=== PATIENT | female | born 1945 | race Hispanic/Latino ===

== ENCOUNTER → 2018-08-17 | Outpatient (CLI) | payer OTHER | END | disposition home or self-care (01) | LOC: SHCH 14:25 | PROVIDERS: ATTEND Internal Medicine Cardiovascular Disease | DX: I51.7 Cardiomegaly (principal); I35.1 Nonrheumatic aortic (valve) insufficiency; R55 Syncope and collapse | CPT/HCPCS: 93306 ==

== ENCOUNTER 2020-09-02 12:56 | Emergency (ER) | payer OTHER ==
[2020-09-02] MEDS ORDERED: 0.9%NACL 1000ML 1,000 ML IV ONE (13:13)
[2020-09-02] MEDS ORDERED: ACETAMINOPHEN 500 MG TABLET ONE (13:13)
[2020-09-02 13:35] LABS: BASOPHILS % (AUTO) 0.7 % (0.0-5.0); EOSINOPHILS % (AUTO) 3.2 % (0.0-8.0); HEMATOCRIT 28.2 % (36-48); LYMPHOCYTES % (AUTO) 20.1 % (21.0-51.0); MEAN CORPUSCULAR HEMOGLOBIN 32.4 pg (27.0-33.0); MEAN CORPUSCULAR HGB CONC 32.6 g/dL (32.0-36.0); MEAN CORPUSCULAR VOLUME 99.3 fL (79-99); MONOCYTES % (AUTO) 8.8 % (3.0-13.0); PLATELET COUNT (AUTO) 322 K/uL (130-400); RED BLOOD CELL COUNT(AUTO) 2.84 MIL/uL (4.00-5.50); RED CELL DISTRIBUTION WIDTH 13.8 % (11.0-15.5); WHITE BLOOD COUNT (AUTO) 4.3 K/uL (4.8-10.8)
[2020-09-02 13:50] LABS: INR 0.98 (0.85-1.15); PROTHROMBIN TIME 10.7 SEC (9.6-11.6)
[2020-09-02 13:52] LABS: PARTIAL THROMBOPLASTIN TIME 27.6 SEC (26.3-35.5)
[2020-09-02 13:59] LABS: ALANINE AMINOTRANSFERASE 16 U/L (12-78); ALBUMIN 3.1 g/dL (3.5-5.0); ASPARTATE AMINOTRANSFERASE 14 U/L (10-37); BILIRUBIN,TOTAL 0.3 mg/dL (0.2-1.0); CARBON DIOXIDE 30 mmol/L (21-32); CHLORIDE 109 mmol/L (101-111); CREATINE KINASE, TOTAL 28 U/L (21-232); CREATININE 0.6 mg/dL (0.5-1.5); GLOMERULAR FILTR. RATE CALC 104 mL/min (>60); GLUCOSE,RANDOM 112 mg/dL (70-105); MYOGLOBIN 38 ng/mL (10-92); POTASSIUM 4.6 mmol/L (3.5-5.1); SODIUM SERUM 145 mmol/L (136-145); TOTAL PROTEIN, SERUM 6.5 g/dL (6.0-8.3); TROPONIN I < 0.04 ng/mL (0.00-0.06); UREA NITROGEN, BLOOD 14 mg/dL (7-18)
[2020-09-02 15:38] LABS: APPEARANCE,URINE Clear (CLEAR); BILIRUBIN,URINE Negative (NEGATIVE); COLOR,URINE Yellow (YELLOW); GLUCOSE, URINE (UA) Negative (NEGATIVE); KETONES,URINE Negative (NEGATIVE); LEUKOCYTE ESTERASE ,URINE Negative (NEGATIVE); NITRATE,URINE Negative (NEGATIVE); OCCULT BLOOD,URINE Negative (NEGATIVE); PH,URINE 7.5 (5.0-8.0); PROTEIN,URINE Negative (NEGATIVE); UROBILINOGEN,URINE 0.2 mg/dL (0.2-1.0)
== END 2020-09-02 17:37 | disposition home or self-care (01) ==
LOC: EDH 12:56
DX: B33.8 Other specified viral diseases (principal); Z20.822 Contact with and (suspected) exposure to COVID-19; I10 Essential (primary) hypertension; Z98.890 Other specified postprocedural states; I25.10 Atherosclerotic heart disease of native coronary artery without angina pectoris; Z88.6 Allergy status to analgesic agent; Z72.0 Tobacco use
CPT/HCPCS: 36415; 71045; 80053; 81003; 82550; 83605; 83874; 84145; 84484; 85025; 85610; 85730; 86900; 86901; 87040 ×2; 87088; 87426; 87804 ×2; 93005; 99285; J7030; U0003

== ENCOUNTER 2021-03-31 16:11 | Emergency (ER) | payer OTHER ==
[~2021-03-31] VITALS: Ht 165.1 cm; Wt 49.9 kg
[2021-03-31] MEDS ORDERED: POLY119P2 PO (18:58)
[2021-03-31 19:27] VITALS: BP 170/76
== END 2021-03-31 19:20 | disposition home or self-care (01) ==
LOC: EDH 16:11
DX: K56.41 Fecal impaction (principal); I10 Essential (primary) hypertension; E11.9 Type 2 diabetes mellitus without complications; Z88.6 Allergy status to analgesic agent

== ENCOUNTER 2021-05-17 19:27 | Observation (INO) | payer OTHER ==
[~2021-05-17] VITALS: Ht 165.1 cm; Wt 50.6 kg
[~2021-05-17 19:27] MED LIST: POLY119P2 PO
[2021-05-17 20:19] LABS: BASOPHILS % (AUTO) 0.5 % (0.0-5.0); EOSINOPHILS % (AUTO) 5.3 % (0.0-8.0); HEMATOCRIT 27.6 % (36-48); LYMPHOCYTES % (AUTO) 28.2 % (21.0-51.0); MEAN CORPUSCULAR HEMOGLOBIN 33.1 pg (27.0-33.0); MEAN CORPUSCULAR VOLUME 100.4 fL (79-99); MONOCYTES % (AUTO) 7.1 % (3.0-13.0); NEUTROPHILS % (AUTO) 58.9 % (40.0-77.0); PLATELET COUNT (AUTO) 170 K/uL (130-400); RED BLOOD CELL COUNT(AUTO) 2.75 MIL/uL (4.00-5.50); RED CELL DISTRIBUTION WIDTH 13.5 % (11.0-15.5); WHITE BLOOD COUNT (AUTO) 3.8 K/uL (4.8-10.8)
[2021-05-17 20:26] LABS: INR 1.36 (0.85-1.15); PROTHROMBIN TIME 14.4 SEC (9.6-11.6)
[2021-05-17 20:36] LABS: CREATININE 0.6 mg/dL (0.5-1.5); POTASSIUM 3.6 mmol/L (3.5-5.1)
[2021-05-17 20:47] LABS: B-TYPE NATRIURETIC PEPTIDE 323 pg/mL (0-100)
[2021-05-17 20:50] LABS: ALBUMIN 3.8 g/dL (3.5-5.0); BILIRUBIN,TOTAL 0.3 mg/dL (0.2-1.0); TOTAL PROTEIN, SERUM 6.7 g/dL (6.0-8.3)
[2021-05-17] MEDS ORDERED: NITROGLYCERIN 1GM OINT 1 INCH/1GM TD ONE (21:00)
[2021-05-17] MEDS ORDERED: ASPIRIN 325MG TAB PO ONE (21:00)
[2021-05-17] MEDS ORDERED: IOHEXOL 350 MG/ML 100ML INFUS..BTL IV ONE (21:01)
[2021-05-17 22:08] LABS: APPEARANCE,URINE Clear (CLEAR); BILIRUBIN,URINE Negative (NEGATIVE); COLOR,URINE Yellow (YELLOW); GLUCOSE, URINE (UA) Negative (NEGATIVE); KETONES,URINE Negative (NEGATIVE); LEUKOCYTE ESTERASE ,URINE Large (NEGATIVE); NITRATE,URINE Negative (NEGATIVE); OCCULT BLOOD,URINE Negative (NEGATIVE); PROTEIN,URINE Trace mg/dL (NEGATIVE)
[2021-05-17 22:14] LABS: BACTERIA,URINE Few /HPF (None Seen); RBC,URINE 0-1 /HPF (0-1)
[2021-05-17 22:15] LABS: SQUAMOUS EPITHELIAL CELL,UR Rare /HPF (0-2); TRANSITIONAL EPI CELLS,URINE Few /HPF (None Seen)
[2021-05-17 22:16] LABS: AMPHET/METH SCREEN,URINE NEGATIVE (NEGATIVE); BARBITURATE SCREEN, URINE NEGATIVE (NEGATIVE); BENZODIAZEPINES SCREEN,URINE NEGATIVE (NEGATIVE); CANNABINOID SCREEN,URINE NEGATIVE (NEGATIVE); COCAINE SCREEN,URINE NEGATIVE (NEGATIVE); OPIATE SCREEN,URINE NEGATIVE (NEGATIVE); PHENCYCLIDINE SCREEN,URINE NEGATIVE (NEGATIVE)
[2021-05-17] MEDS ORDERED: CEFTRIAXONE 1G VIAL IV SCH (22:30)
[2021-05-17] MEDS ORDERED: ONDANSETRON 4MG INJ IV PRN (22:30)
[2021-05-17] MEDS: NITROGLYCERIN 1GM OINT 1 INCH/1GM TD SCH (22:30)
[2021-05-18 04:30] VITALS: BP 167/54
[2021-05-18 06:33] LABS: BASOPHILS % (AUTO) 0.2 % (0.0-5.0); EOSINOPHILS % (AUTO) 5.7 % (0.0-8.0); HEMATOCRIT 29.2 % (36-48); LYMPHOCYTES % (AUTO) 37.7 % (21.0-51.0); MEAN CORPUSCULAR HGB CONC 32.9 g/dL (32.0-36.0); MEAN CORPUSCULAR VOLUME 100.3 fL (79-99); MONOCYTES % (AUTO) 9.7 % (3.0-13.0); NEUTROPHILS % (AUTO) 46.5 % (40.0-77.0); PLATELET COUNT (AUTO) 149 K/uL (130-400); RED BLOOD CELL COUNT(AUTO) 2.91 MIL/uL (4.00-5.50); RED CELL DISTRIBUTION WIDTH 13.4 % (11.0-15.5)
[2021-05-18] MEDS: INSULIN HUMULIN R 100 UNIT/ML 3ML SQ SCH ×2 (06:36→11:30)
[2021-05-18] MEDS: NITROGLYCERIN 1GM OINT 1 INCH/1GM TD SCH ×2 (06:36→14:28)
[2021-05-18 06:41] LABS: HEMOGLOBIN A1C 5.6 % (4.0-6.0)
[2021-05-18 06:52] LABS: CREATININE 0.5 mg/dL (0.5-1.5); MAGNESIUM 2.2 mg/dL (1.80-2.40); PHOSPHORUS 3.8 mg/dL (2.5-4.9); POTASSIUM 3.7 mmol/L (3.5-5.1)
[2021-05-18] MEDS ORDERED: HYDR25TA PO (07:50)
[2021-05-18] MEDS ORDERED: AMLO-257 PO (07:50)
[2021-05-18] MEDS ORDERED: PRAV40TA3 PO (07:50)
[2021-05-18] MEDS ORDERED: SERT-440 PO (07:50)
[2021-05-18] MEDS ORDERED: LISI40TA9 PO (07:50)
[2021-05-18] MEDS ORDERED: ERGO500093 PO (07:50)
[2021-05-18] MEDS ORDERED: METF-444 PO (07:50)
[2021-05-18] MEDS ORDERED: AEC81 PO (07:50)
[2021-05-18 08:49] VITALS: BP 149/45
[2021-05-18] MEDS ORDERED: ASPIRIN 81 MG EC TAB PO SCH (09:00)
[2021-05-18] MEDS ORDERED: ENOXAPARIN SODIUM 30 MG/0.3 ML SQ SCH (09:00)
[2021-05-18] MEDS ORDERED: HYDROCHLOROTHIAZIDE 25 MG TABLET PO SCH (09:00)
[2021-05-18] MEDS ORDERED: FAMOTIDINE 20MG TAB PO SCH (09:00)
[2021-05-18] MEDS ORDERED: AMLODIPINE 5 MG TAB PO SCH (09:00)
[2021-05-18] MEDS ORDERED: PNEUMOCOCCAL VACCINE POLYVALENT 0.5 ML/VIAL [PPV] IM SCH (10:00)
[2021-05-18] MEDS ORDERED: 0.9%NACL 1000ML 1,000 ML IV SCH (10:30)
[2021-05-18] MEDS ORDERED: HYDROCODONE/ACETAMINOPHEN 5/325 MG TAB PO PRN (10:30)
[2021-05-18 11:38] VITALS: BP 178/50
[2021-05-18] MEDS ORDERED: LISINOPRIL 40 MG TABLET PO SCH (21:00)
[2021-05-18] MEDS ORDERED: ATORVASTATIN 10 MG TABLET PO SCH (21:00)
== END 2021-05-18 15:15 | disposition left against medical advice (07) ==
LOC: EDH 19:27 → EDHIP 22:18 → 4CH 05-18 04:21
PROVIDERS: ADMIT Internal Medicine; ATTEND Internal Medicine
DX: R07.89 Other chest pain (principal); N39.0 Urinary tract infection, site not specified; E43 Unspecified severe protein-calorie malnutrition; I71.2 Thoracic aortic aneurysm, without rupture; I10 Essential (primary) hypertension; E11.9 Type 2 diabetes mellitus without complications; F31.9 Bipolar disorder, unspecified; R29.6 Repeated falls; R53.81 Other malaise; I25.2 Old myocardial infarction; F14.90 Cocaine use, unspecified, uncomplicated; F17.200 Nicotine dependence, unspecified, uncomplicated; Z79.82 Long term (current) use of aspirin; Z79.899 Other long term (current) drug therapy; Z53.29 Procedure and treatment not carried out because of patient's decision for other reasons; Z79.891 Long term (current) use of opiate analgesic; Z95.1 Presence of aortocoronary bypass graft
CPT/HCPCS: 36415 ×2; 70450; 71045; 71275; 72170; 73560; 73630; 80048; 80053; 80305; 81001; 82550; 82948; 83036; 83735 ×2; 83880; 84100; 84484 ×2; 85025 ×2; 85610; 87088; 93005; 96372; 96374; 99285; G0378 ×15; J0696; J1650; J7030; Q9967; 90732

== ENCOUNTER 2021-06-19 20:15 | Emergency (ER) | payer OTHER ==
[~2021-06-19] VITALS: Ht 152.4 cm; Wt 52.2 kg
[~2021-06-19 20:15] MED LIST changes: +AEC81 PO; +AMLO-257 PO; +ERGO500093 PO; +HYDR25TA PO; +LISI40TA9 PO; +METF-444 PO; +PRAV40TA3 PO; +SERT-440 PO
[2021-06-19 22:04] LABS: BASOPHILS % (AUTO) 0.4 % (0.0-5.0); EOSINOPHILS % (AUTO) 1.9 % (0.0-8.0); HEMATOCRIT 31.3 % (36-48); LYMPHOCYTES % (AUTO) 21.3 % (21.0-51.0); MEAN CORPUSCULAR HEMOGLOBIN 33.4 pg (27.0-33.0); MEAN CORPUSCULAR HGB CONC 33.5 g/dL (32.0-36.0); MEAN CORPUSCULAR VOLUME 99.7 fL (79-99); NEUTROPHILS % (AUTO) 70.2 % (40.0-77.0); PLATELET COUNT (AUTO) 176 K/uL (130-400); RED BLOOD CELL COUNT(AUTO) 3.14 MIL/uL (4.00-5.50); RED CELL DISTRIBUTION WIDTH 12.4 % (11.0-15.5); WHITE BLOOD COUNT (AUTO) 4.7 K/uL (4.8-10.8)
[2021-06-19 22:13] LABS: CREATININE 0.7 mg/dL (0.5-1.5); POTASSIUM 4.3 mmol/L (3.5-5.1)
[2021-06-19 22:19] LABS: ALBUMIN 4.2 g/dL (3.5-5.0); BILIRUBIN,TOTAL 0.5 mg/dL (0.2-1.0); TOTAL PROTEIN, SERUM 7.3 g/dL (6.0-8.3)
[2021-06-19 22:20] LABS: APPEARANCE,URINE Clear (CLEAR); BILIRUBIN,URINE Negative (NEGATIVE); COLOR,URINE Yellow (YELLOW); GLUCOSE, URINE (UA) Negative (NEGATIVE); KETONES,URINE Negative (NEGATIVE); LEUKOCYTE ESTERASE ,URINE Moderate (NEGATIVE); NITRATE,URINE Negative (NEGATIVE); OCCULT BLOOD,URINE Moderate (NEGATIVE); PH,URINE 7.5 (5.0-8.0); PROTEIN,URINE Trace mg/dL (NEGATIVE)
[2021-06-19] MEDS ORDERED: IOHEXOL 350 MG/ML 100ML INFUS..BTL IV ONE (22:30)
[2021-06-19 22:35] LABS: BACTERIA,URINE Rare /HPF (None Seen); RBC,URINE 0-1 /HPF (0-1)
[2021-06-19 22:36] LABS: SQUAMOUS EPITHELIAL CELL,UR Rare /HPF (0-2)
[2021-06-19] MEDS ORDERED: FAMOTIDINE 20MG VIAL IV ONE (23:30)
[2021-06-19 23:50] VITALS: BP 131/40
== END 2021-06-20 01:40 | disposition home or self-care (01) ==
LOC: EDH 20:15
DX: E86.9 Volume depletion, unspecified (principal); M25.512 Pain in left shoulder; R05.9 Cough, unspecified; I25.10 Atherosclerotic heart disease of native coronary artery without angina pectoris; I10 Essential (primary) hypertension; Z88.6 Allergy status to analgesic agent; Z79.899 Other long term (current) drug therapy; Z79.82 Long term (current) use of aspirin; Z79.84 Long term (current) use of oral hypoglycemic drugs; F17.200 Nicotine dependence, unspecified, uncomplicated
CPT/HCPCS: 36415; 71045; 80053; 81001; 83690; 84484; 85025; 87088; 93005; Q9967

== ENCOUNTER 2021-10-16 23:41 | Emergency (ER) | payer OTHER ==
[~2021-10-16] VITALS: Ht 165.1 cm; Wt 47.6 kg
[2021-10-17] MEDS ORDERED: ONDANSETRON ODT 4MG TAB SL ONE
[2021-10-17 01:35] LABS: BASOPHILS % (AUTO) 0.1 % (0.0-5.0); EOSINOPHILS % (AUTO) 0.4 % (0.0-8.0); HEMATOCRIT 29.7 % (36-48); LYMPHOCYTES % (AUTO) 23.2 % (21.0-51.0); MEAN CORPUSCULAR HEMOGLOBIN 30.9 pg (27.0-33.0); MEAN CORPUSCULAR HGB CONC 32.3 g/dL (32.0-36.0); MEAN CORPUSCULAR VOLUME 95.5 fL (79-99); MONOCYTES % (AUTO) 7.3 % (3.0-13.0); NEUTROPHILS % (AUTO) 68.7 % (40.0-77.0); PLATELET COUNT (AUTO) 187 K/uL (130-400); RED BLOOD CELL COUNT(AUTO) 3.11 MIL/uL (4.00-5.50); RED CELL DISTRIBUTION WIDTH 13.2 % (11.0-15.5); WHITE BLOOD COUNT (AUTO) 7.3 K/uL (4.8-10.8)
[2021-10-17 01:39] LABS: APPEARANCE,URINE Clear (CLEAR); BILIRUBIN,URINE Negative (NEGATIVE); COLOR,URINE Dark Yellow (YELLOW); GLUCOSE, URINE (UA) Negative (NEGATIVE); KETONES,URINE Trace mg/dL (NEGATIVE); LEUKOCYTE ESTERASE ,URINE Moderate (NEGATIVE); NITRATE,URINE Negative (NEGATIVE); OCCULT BLOOD,URINE Trace (NEGATIVE); PROTEIN,URINE 300 mg/dL (NEGATIVE)
[2021-10-17 01:45] LABS: CARBON DIOXIDE 36 mmol/L (21-32); CHLORIDE 103 mmol/L (101-111); CREATININE 0.9 mg/dL (0.5-1.5); GLOMERULAR FILTR. RATE CALC 65 mL/min (>60); GLUCOSE,RANDOM 101 mg/dL (70-105); SODIUM SERUM 142 mmol/L (136-145); UREA NITROGEN, BLOOD 36 mg/dL (7-18)
[2021-10-17 01:48] LABS: AMPHET/METH SCREEN,URINE NEGATIVE (NEGATIVE); BARBITURATE SCREEN, URINE NEGATIVE (NEGATIVE); BENZODIAZEPINES SCREEN,URINE NEGATIVE (NEGATIVE); CANNABINOID SCREEN,URINE NEGATIVE (NEGATIVE); COCAINE SCREEN,URINE NEGATIVE (NEGATIVE); OPIATE SCREEN,URINE POSITIVE (NEGATIVE); PHENCYCLIDINE SCREEN,URINE NEGATIVE (NEGATIVE)
[2021-10-17 01:50] LABS: ACETAMINOPHEN 6 mcg/mL (10-30); ALANINE AMINOTRANSFERASE 28 U/L (12-78); ALBUMIN 3.2 g/dL (3.5-5.0); ALCOHOL, BLOOD < 3 mg/dL (0-10); ASPARTATE AMINOTRANSFERASE 21 U/L (10-37); BILIRUBIN,TOTAL 0.3 mg/dL (0.2-1.0); TOTAL PROTEIN, SERUM 6.2 g/dL (6.0-8.3)
[2021-10-17 01:52] LABS: BACTERIA,URINE Few /HPF (None Seen)
[2021-10-17] MEDS ORDERED: LIDOCAINE 5% TOPICAL PATCH TP ONE ×2 (01:52→02:00)
[2021-10-17 01:53] LABS: MUCUS,URINE Rare LPF (None Seen); SALICYLATE < 2.8 mg/dL (2.8-20.0); SQUAMOUS EPITHELIAL CELL,UR 0-2 /HPF (0-2)
[2021-10-17] MEDS ORDERED: CEPHALEXIN 500 MG CAPSULE PO ONE (02:30)
[2021-10-17] MEDS ORDERED: 0.9%NACL 1000ML 1,000 ML IV ONE (06:00)
[2021-10-17] MEDS ORDERED: MORPHINE 2 MG SYG IVP ONE (06:00)
[2021-10-17] MEDS ORDERED: LIDOP TP (06:05)
[2021-10-17] MEDS ORDERED: CEPH500B PO (06:06)
[2021-10-17 06:20] VITALS: BP 145/65
== END 2021-10-17 06:31 | disposition home or self-care (01) ==
LOC: EDH 23:41
DX: F43.9 Reaction to severe stress, unspecified (principal); Z20.822 Contact with and (suspected) exposure to COVID-19; I10 Essential (primary) hypertension; I25.10 Atherosclerotic heart disease of native coronary artery without angina pectoris; F17.200 Nicotine dependence, unspecified, uncomplicated; Z88.6 Allergy status to analgesic agent; Z79.82 Long term (current) use of aspirin; Z79.84 Long term (current) use of oral hypoglycemic drugs; Z79.899 Other long term (current) drug therapy
CPT/HCPCS: 36415; 80053; 80305; 81001; 85025; 87077; 87088; 87186; 87635; 99284; C9803; G0481

== ENCOUNTER 2021-10-18 13:42 | Emergency (ER) | payer OTHER ==
[~2021-10-18] VITALS: Ht 167.6 cm; Wt 45.8 kg
[~2021-10-18 13:42] MED LIST changes: +CEPH500B PO; +LIDOP TP
[2021-10-18] MEDS ORDERED: IPRATROPIUM/ALBUTEROL SULFATE 3 ML SOLUTION IH ONE (14:00)
[2021-10-18 15:28] VITALS: BP 107/58
[2021-10-19] MEDS ORDERED: PRED20TA3 PO (16:26)
== END 2021-10-18 15:29 | disposition home or self-care (01) ==
LOC: EDH 13:42
DX: J44.1 Chronic obstructive pulmonary disease with (acute) exacerbation (principal); M19.90 Unspecified osteoarthritis, unspecified site; E78.00 Pure hypercholesterolemia, unspecified; I10 Essential (primary) hypertension; F17.210 Nicotine dependence, cigarettes, uncomplicated; Z88.8 Allergy status to other drugs, medicaments and biological substances; Z88.6 Allergy status to analgesic agent; Z79.899 Other long term (current) drug therapy; Z79.82 Long term (current) use of aspirin; Z79.84 Long term (current) use of oral hypoglycemic drugs; Z90.89 Acquired absence of other organs; Z90.49 Acquired absence of other specified parts of digestive tract; Z98.890 Other specified postprocedural states
CPT/HCPCS: 71045; 94640

== ENCOUNTER 2021-10-19 15:25 | Emergency (ER) | payer OTHER ==
[~2021-10-19] VITALS: Ht 167.6 cm; Wt 45.8 kg
[2021-10-19 15:41] VITALS: BP 90/42
[2021-10-19] MEDS ORDERED: IPRATROPIUM/ALBUTEROL SULFATE 3 ML SOLUTION IH SCH (16:00)
[2021-10-19] MEDS ORDERED: PREDNISONE 20 MG TABLET PO SCH (16:00)
[2021-10-19] MEDS ORDERED: PRED20TA3 PO (16:26)
== END 2021-10-19 17:12 | disposition home or self-care (01) ==
LOC: EDH 15:25
DX: J44.1 Chronic obstructive pulmonary disease with (acute) exacerbation (principal); E11.9 Type 2 diabetes mellitus without complications; I10 Essential (primary) hypertension; F17.210 Nicotine dependence, cigarettes, uncomplicated; Z88.6 Allergy status to analgesic agent; Z79.899 Other long term (current) drug therapy; Z79.82 Long term (current) use of aspirin; Z79.84 Long term (current) use of oral hypoglycemic drugs
CPT/HCPCS: 94640